=== PATIENT | female | born 2005 | race Caucasian/White ===

== ENCOUNTER 2025-08-31 16:26 | Emergency (ER) | payer MEDICAID, OTHER ==
[~2025-08-31] VITALS: Ht 152.4 cm; Wt 44.5 kg
[2025-08-31 16:59] VITALS: BP 109/59; TEMP 98.1; O2SAT 100
[2025-08-31 17:23] LABS: PLATELET COUNT (AUTO) 359 K/uL (150-450); RED BLOOD CELL COUNT(AUTO) 4.46 MIL/uL (4.0-5.2); RED CELL DISTRIBUTION WIDTH 12.7 % (11.5-15.0); WHITE BLOOD COUNT (AUTO) 6.6 K/uL (4.3-11.0)
[2025-08-31] MEDS ORDERED: LORAZEPAM INJ 2 MG/ML VIAL ONE (17:27)
[2025-08-31 17:29] LABS: CALCIUM, SERUM 9.2 mg/dL (8.5-10.1); CREATININE 0.6 mg/dL (0.6-1.3); SODIUM SERUM 134 mmol/L (136-145); UREA NITROGEN, BLOOD 12 mg/dL (7-18)
[2025-08-31 17:31] LABS: AMPHETAMINE, URINE NEGATIVE (NEGATIVE); BARBITURATE, URINE NEGATIVE (NEGATIVE); BENZODIAZEPINE, URINE NEGATIVE (NEGATIVE); CANNABINOID, URINE POSITIVE (NEGATIVE); COCCAINE, URINE NEGATIVE (NEGATIVE); OPIATE, URINE NEGATIVE (NEGATIVE)
[2025-08-31 17:35] LABS: ALCOHOL, BLOOD < 3 mg/dL (0-10); ASPARTATE AMINOTRANSFERASE 28 U/L (15-37); TOTAL PROTEIN, SERUM 8.6 g/dL (6.4-8.2)
[2025-08-31] MEDS: LORAZEPAM INJ 2 MG/ML VIAL IV ONE (17:37)
[2025-08-31] MEDS ORDERED: ONDANSETRON HCL/PF 4 MG/2 ML VIAL ONE (17:49)
[2025-08-31] MEDS: ONDANSETRON HCL/PF 4 MG/2 ML VIAL IV ONE (17:53)
[2025-08-31 18:05] LABS: APPEARANCE,URINE CLEAR (CLEAR); BLOOD, URINE Moderate Ery/uL (NEGATIVE); LEUKOCYTE ESTERASE ,URINE Negative (NEGATIVE); NITRITE, URINE NEGATIVE (NEGATIVE); UGLUCOSE Negative (NEGATIVE)
[2025-08-31 18:09] LABS: ADD URINE CULTURE YES; SQUAMOUS EPITHELIAL CELL,UR Few /HPF (None Seen)
[2025-08-31 18:26] LABS: PREGNANCY TEST URINE QUAL NEGATIVE (NEGATIVE)
[2025-08-31] MEDS ORDERED: OLANZAPINE ZYDIS 5 MG TAB.RAPDIS ONE (19:46)
[2025-08-31] MEDS: OLANZAPINE ZYDIS 5 MG TAB.RAPDIS SL ONE (19:49)
== END 2025-08-31 20:53 | disposition left against medical advice (07) ==
LOC: ER 16:48
DX: F41.9 Anxiety disorder, unspecified (principal); F22 Delusional disorders; Z79.899 Other long term (current) drug therapy
CPT/HCPCS: 99284; 96374; 96375; 85025; 80048; 87086; 80076; 84703; 81001; 36415; 80143; 80320; 80307; 98960; J2060; J2405; G0480

== ENCOUNTER 2025-09-01 07:15 | Emergency (ER) | payer OTHER ==
[~2025-09-01] VITALS: Ht 160 cm; Wt 44.0 kg
[2025-09-01 07:50] LABS: PLATELET COUNT (AUTO) 340 K/uL (150-450); RED BLOOD CELL COUNT(AUTO) 4.62 MIL/uL (4.0-5.2); RED CELL DISTRIBUTION WIDTH 12.9 % (11.5-15.0); WHITE BLOOD COUNT (AUTO) 5.2 K/uL (4.3-11.0)
[2025-09-01 07:58] LABS: CALCIUM, SERUM 9.7 mg/dL (8.5-10.1); CREATININE 0.7 mg/dL (0.6-1.3); SODIUM SERUM 140 mmol/L (136-145); UREA NITROGEN, BLOOD 15 mg/dL (7-18)
[2025-09-01 08:01] LABS: APPEARANCE,URINE CLEAR (CLEAR); BLOOD, URINE TRACE-INTA Ery/uL (NEGATIVE); LEUKOCYTE ESTERASE ,URINE NEGATIVE (NEGATIVE); NITRITE, URINE NEGATIVE (NEGATIVE); PREGNANCY TEST URINE QUAL NEGATIVE (NEGATIVE); UGLUCOSE NEGATIVE (NEGATIVE)
[2025-09-01 08:03] LABS: AMPHETAMINE, URINE NEGATIVE (NEGATIVE); BARBITURATE, URINE NEGATIVE (NEGATIVE); BENZODIAZEPINE, URINE NEGATIVE (NEGATIVE); COCCAINE, URINE NEGATIVE (NEGATIVE); OPIATE, URINE NEGATIVE (NEGATIVE)
[2025-09-01 08:06] LABS: CANNABINOID, URINE POSITIVE (NEGATIVE)
[2025-09-01 08:12] LABS: ALCOHOL, BLOOD < 3 mg/dL (0-10); ASPARTATE AMINOTRANSFERASE 23 U/L (15-37); TOTAL PROTEIN, SERUM 8.3 g/dL (6.4-8.2)
[2025-09-01 08:14] LABS: ADD URINE CULTURE NO
[2025-09-01] MEDS ORDERED: LORAZEPAM INJ 2 MG/ML VIAL ONE ×2 (08:23→11:02)
[2025-09-01] MEDS ORDERED: LORAZEPAM 1 MG TABLET PO ONE (08:30)
[2025-09-01] MEDS: IV NS 0.9% 1,000 ML BAG IV ONE (08:30)
[2025-09-01] MEDS: LORAZEPAM INJ 2 MG/ML VIAL IV ONE ×2 (08:30→11:25)
[2025-09-01] MEDS ORDERED: ONDANSETRON HCL/PF 4 MG/2 ML VIAL ONE (08:43)
[2025-09-01] MEDS: ONDANSETRON HCL/PF 4 MG/2 ML VIAL IV ONE (08:56)
[2025-09-01] MEDS ORDERED: HALOPERIDOL LACTATE INJ 5 MG/ML VIAL ONE (11:02)
[2025-09-01 11:15] VITALS: BP 123/71; TEMP 97.3; O2SAT 99
[2025-09-01] MEDS: HALOPERIDOL LACTATE INJ 5 MG/ML VIAL IV ONE (11:24)
[2025-09-02] MEDS ORDERED: LORA-259 PO (13:50)
== END 2025-09-01 14:28 ==
LOC: ER 07:19
DX: F41.9 Anxiety disorder, unspecified (principal); Z79.899 Other long term (current) drug therapy; Z86.2 Personal history of diseases of the blood and blood-forming organs and certain disorders involving the immune mechanism
CPT/HCPCS: 99285; 96374; 96361; 96375; 93005; 96376; 85025; 80048; 80076; 84703; 81001; 36415; 84439; 84443; 80143; 80320; 80307; J2060 ×2; J1630; J2405; G0480

== ENCOUNTER 2025-09-02 09:01 | Emergency (ER) | payer OTHER ==
[~2025-09-02] VITALS: Ht 152.4 cm; Wt 44.7 kg
[2025-09-02] MEDS: IV NS 0.9% 1,000 ML BAG IV ONE (09:30)
[2025-09-02] MEDS: LORAZEPAM INJ 2 MG/ML VIAL IV ONE (09:30)
[2025-09-02] MEDS ORDERED: LORAZEPAM INJ 2 MG/ML VIAL ONE (09:42)
[2025-09-02 09:47] LABS: PLATELET COUNT (AUTO) 336 K/uL (150-450); RED BLOOD CELL COUNT(AUTO) 4.61 MIL/uL (4.0-5.2); RED CELL DISTRIBUTION WIDTH 12.6 % (11.5-15.0); WHITE BLOOD COUNT (AUTO) 5.6 K/uL (4.3-11.0)
[2025-09-02 09:56] LABS: CALCIUM, SERUM 9.1 mg/dL (8.5-10.1); CREATININE 0.6 mg/dL (0.6-1.3); SODIUM SERUM 139 mmol/L (136-145); UREA NITROGEN, BLOOD 19 mg/dL (7-18)
[2025-09-02] MEDS ORDERED: LORA-259 PO (13:50)
[2025-09-02 14:23] VITALS: BP 118/70; TEMP 98.8; O2SAT 98
== END 2025-09-02 14:23 | disposition home or self-care (01) ==
LOC: ER 09:04
DX: F41.9 Anxiety disorder, unspecified (principal); I51.7 Cardiomegaly
CPT/HCPCS: 99285; 96374; 71045; 96361; 93005 ×2; 85025; 80048; 85378; 36415; 84484 ×2; 84702; J2060; J7030